=== PATIENT | female | born 1995 | race Caucasian/White ===

== ENCOUNTER 2021-11-28 17:00 | Inpatient (IN) | payer MEDICAID, SELFPAY ==
[2021-11-28 17:07] VITALS: BP 106/73; PULSE 87; RESP 18; TEMP 36.8; O2SAT 98
[2021-11-28 17:09] VITALS: BMI 21.9
[2021-11-28 21:39] VITALS: BP 111/66; PULSE 80; RESP 16; TEMP 37.1; O2SAT 100
[2021-11-28] MEDS: trazodone 50 mg Tablet PO (23:46)
[2021-11-29 06:00] VITALS: BP 103/69; PULSE 70; RESP 16; TEMP 36.7; O2SAT 98
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
[2021-11-29 14:00] VITALS: BP 101/67; PULSE 84; RESP 18; TEMP 37.1; O2SAT 100
[2021-11-29 20:12] VITALS: BP 102/66; PULSE 70; RESP 16; TEMP 36.9; O2SAT 98
[2021-11-29] MEDS: trazodone 50 mg Tablet PO ×2 (21:17→22:52)
--- NOTE | 2021-11-30 04:38 | PC.NURSE ---
PRN ADMINISTRATION: Patient c/o having trouble sleeping and anxiety. PRN geodon and trazodone given as ordered with noted effectiveness.
--- NOTE | 2021-11-30 04:42 | PC.NURSE ---
PRN ADMIN: Patient c/o trouble sleeping, PRN trazodone given with noted effectiveness.
[2021-11-30 05:49] VITALS: BP 102/66; PULSE 70; RESP 16; TEMP 36.9; O2SAT 98
[2021-11-30 06:22] VITALS: BP 93/60; PULSE 65; RESP 16; TEMP 36.6; O2SAT 99
--- NOTE | 2021-11-30 08:43 | PC.NURSE ---
AM ASSESSMENT IN BED RESTING, AROUSES TO VOICE. DENIES PAIN. DENIES SI/HI AND AVH AT THIS TIME. AWAITING DISCHARGE. STATES SHE SLEPT WELL AND SHE IS READY TO DISCHARGE AND GO BACK TO . AWAITING DISCHARGE ORDERS.
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
[2021-11-30 09:33] VITALS: BP 93/60; PULSE 65; RESP 16; TEMP 36.6; O2SAT 99
--- NOTE | 2021-11-30 09:34 | PC.NURSE ---
NO BELONGINGS AT THE TIME OF DISCHARGE. DID NOT COME IN WITH ANY BELONGINGS.
[2021-11-30] MEDS: multivitamin therapeutic Tablet 1 TAB PO (09:39)
[2021-11-30] MEDS: thiamine 100 mg Tablet PO (09:39)
[2021-11-30] MEDS: folic acid 1 mg Tablet PO (09:39)
--- NOTE | 2021-11-30 09:46 | PC.NURSE ---
DISCHARGE NOTE ALL DISCHARGE TEACHING COMPLETED. REVIEWED ALL APPOINTMENTS. ALL QUESTIONS ANSWERED AND SUPPORT VOICED. DENIES PAIN. DENIES SI/HI AND AVH AT THIS TIME. VITAL SIGNS STABLE. MEDICAID TRANSPORT WILL BE TAKING HER TO BACK [place] [facility] [facility]LY [facility].
== END 2021-11-30 09:49 | disposition home or self-care (01) | DRG 897 ==
PROVIDERS: Admitting Provider Psychiatry & Neurology Psychiatry; Visit Provider Psychiatry & Neurology Psychiatry
DX: F10.129 Alcohol abuse with intoxication, unspecified (principal); R45.851 Suicidal ideations; Y90.8 Blood alcohol level of 240 mg/100 ml or more; R45.850 Homicidal ideations; F17.290 Nicotine dependence, other tobacco product, uncomplicated; F43.10 Post-traumatic stress disorder, unspecified
CPT/HCPCS: 97165